=== PATIENT | female | born 1975 | race Caucasian/White ===

== ENCOUNTER 2025-05-13 01:00 | Observation (INO) | payer BC ==
[2025-05-13] VITALS (7 sets, daily range): BP systolic 119–150; BP diastolic 69–87; PULSE 56–84; RESP 17–20; TEMP 97.9–99.2; O2SAT 96–100
[2025-05-13] MEDS: ONDANSETRON HCL INJ 2MG/ML 2ML 2 MG/ML VIAL IV PRN (02:51)
[2025-05-13] MEDS: ACETAMINOPHEN 325 MG/10 ML UDC PO PRN (02:52)
[2025-05-13] MEDS: D5.45%NS/KCL 20MEQ 1,000 ML IV SCH (03:03)
[2025-05-13 06:37] LABS: BASOPHILS % 0.2 % (0.0-1.0); EOSINOPHILS % 1.5 % (0.0-6.0); LYMPHOCYTES % 24.0 % (18.0-39.1); MONOCYTES % 5.3 % (4.4-11.3); NEUTROPHILS % 68.6 % (38.7-80.0); RED CELL DISTRIBUTION WIDTH 13.2 % (11.7-14.4)
[2025-05-13 06:54] LABS: EST GLOMERULAR FILTRATION RATE 87.0 ML/MIN (>=60)
[2025-05-13] MEDS: DICYCLOMINE HCL 10 MG CAP PO SCH (08:46)
[2025-05-13] MEDS: ACETAMINOPHEN 1000 MG/100 ML IV PRN (09:57)
[2025-05-13] MEDS ORDERED: SODIUM CHLORIDE 0.9% 250ML 250 ML ONE (10:00)
[2025-05-13] MEDS: MULTIVITAMINS- 12 INJECTION 10 ML, FOLIC ACID MDV 1 MG, THIAMINE HCL INJ 100 MG in SODI... IV ONE (11:30)
[2025-05-13] MEDS: PROMETHAZINE 12.5MG/ NACL 0.9% 12.5 MG/50 ML BAG IV PRN (13:42)
[2025-05-13] MEDS: MINERAL OIL 132 ML BTL PR ONE (23:41)
[2025-05-14 00:10] VITALS: BP 102/58; PULSE 70; RESP 20; TEMP 98.4; O2SAT 96
[2025-05-14 04:18] VITALS: BP 92/54; PULSE 76; RESP 18; TEMP 98.6; O2SAT 96
[2025-05-14 07:30] VITALS: BP 92/54; PULSE 76; RESP 18; TEMP 98.6; O2SAT 96
[2025-05-14 08:08] VITALS: BP 116/73; PULSE 62; RESP 18; TEMP 98.2; O2SAT 100
[2025-05-14] MEDS: SENNA-S TABLET PO SCH (12:06)
[2025-05-14 13:10] VITALS: BP 118/80; PULSE 54; RESP 18; TEMP 97.6; O2SAT 100
== END 2025-05-14 14:00 | disposition home or self-care (01) ==
LOC: MED/SURG2 01:00
PROVIDERS: ADMIT Surgery; ATTEND Surgery
DX: K59.00 Constipation, unspecified (principal); Z98.84 Bariatric surgery status; Z88.5 Allergy status to narcotic agent
CPT/HCPCS: 36415; 74018; 80048; 85025; G0378 ×2; J0131; J2405; J2470 ×2; J2550; J3411; J7030; J7050